=== PATIENT | female | born 1995 | race Asian ===

== ENCOUNTER 2023-06-28 12:13 | Observation (INO) ==
[2023-06-28 16:20] LABS: ABS Basophils 0.1 10^3/uL (0.0-0.1); ABS Eosinophils 0.4 10^3/uL (0.0-0.5); ABS Lymphocytes 2.7 10^3/uL (1.0-4.8); ABS Monocytes 0.6 10^3/uL (0.0-0.9); ABS Neutrophils 5.3 10^3/uL (1.5-7.6); Eosinophil % 4.6 %; Hematocrit 37.6 % (35-45); Hemoglobin 12.6 g/dL (11.5-14.3); Lymphocyte % 29.9 %; Mean Corpuscular Hemoglobin 28.2 pg (27-33); Mean Corpuscular Hgb Conc 33.4 g/dL (31-36); Mean Corpuscular Volume 84.5 fL (80-97); Mean Platelet Volume 7.5 fL (7.5-11.2); Platelet Count 472 10^3/uL (150-450); Red Blood Count 4.46 10^6/uL (3.63-4.92); Red Cell Distribution Width 14.4 % (12-17); White Blood Count 9.2 10^3/uL (3.8-11.8)
[2023-06-28 16:43] LABS: HCG Pregnancy < 0.60 mIU/mL
[2023-06-28 16:46] LABS: ALT 14 U/L (7-52); AST 14 U/L (13-39); Albumin 4.4 g/dL (3.2-5.2); Albumin/Globulin Ratio 1.3 (1-3); Alkaline Phosphatase 70 U/L (35-149); Anion Gap 6 mmol/L (2-16); Blood Urea Nitrogen 11 mg/dL (6-24); CO2 Carbon Dioxide 28 mmol/L (22-32); Calcium 9.6 mg/dL (8.6-10.3); Chloride 105 mmol/L (101-111); Creatinine, Serum 0.87 mg/dL (0.51-0.95); Globulin 3.3 g/dL (2-4); Glucose 94 mg/dL (70-100); Potassium 3.8 mmol/L (3.5-5.0); Sodium 139 mmol/L (135-145); Total Protein 7.7 g/dL (6.4-8.9)
[2023-06-28 17:08] LABS: TSH Ultra Thyroid Stim Horm 1.44 mcIU/mL (0.34-5.60)
[2023-06-28 17:20] LABS: Vitamin B12 214 pg/mL (180-914)
[2023-06-28] MEDS ORDERED: Iohexol 350 (CONTRAST) 500 ML MDV IV ONE (17:26)
[2023-06-28 17:37] LABS: Cholesterol 163 mg/dL; HDL Cholesterol 45.7 mg/dL; LDL Cholesterol 90 mg/dL; Triglycerides 136 mg/dL
[2023-06-28 18:43] LABS: Urine Benzodiazepine Screen None Detected (None Detect); Urine Cannabinoids Screen Presumptive Positive (None Detect); Urine Opiates Screen None Detected (None Detect)
[2023-06-28 18:45] LABS: Urine Appearance Cloudy; Urine Bilirubin Negative (Negative); Urine Blood Negative (Negative); Urine Color Straw; Urine Glucose Negative (Negative); Urine Ketones Negative (Negative); Urine Nitrite Negative (Negative); Urine Protein Negative (Negative); Urine Specific Gravity 1.054 (1.002-1.030); Urine Urobilinogen Negative (Negative)
[2023-06-28] MEDS ORDERED: Cyanocobalamin INJ 1,000 MCG/ML VIAL 1 ML VIAL IM ONE (22:00)
[2023-06-28 22:47] LABS: Folate > 20.00 ng/mL (5.90-24.80)
[2023-06-29 00:24] LABS: Vitamin D Total 25(OH) 19.9 ng/mL (20-50)
[2023-06-29 11:08] VITALS: BP 105/68
== END 2023-06-29 16:55 | disposition home or self-care (01) ==
LOC: ED 12:13 → EDHOLD 12:13 → SUATTDRO 19:52 → MEDTELE 21:47
PROVIDERS: ADMIT Student in an Organized Health Care Education/Training Program; ATTEND Hospitalist